=== PATIENT | male | born 1985 | race Caucasian/White ===

== ENCOUNTER 2020-01-21 00:55 | Emergency (ER) | payer OTHER ==
[~2020-01-21] VITALS: Ht 180.3 cm; Wt 89.8 kg
[2020-01-21 01:53] LABS: ABSOLUTE EOSINOPHILS 0.3 thou/uL (0.0-0.7); ABSOLUTE LYMPHOCYTES 2.2 thou/uL (0.8-5.3); ABSOLUTE MONOCYTES 0.6 thou/uL (0.0-1.2); ABSOLUTE NEUTROPHILS 6.7 thou/uL (1.6-8.1); BASOPHILS 0.3 %; HEMATOCRIT 41.4 % (42.0-52.0); LYMPHOCYTES 22.1 %; MCH 32.9 pg (26.0-34.0); MCHC 33.9 g/dL (28.0-37.0); MCV 97.1 fL (80.0-100.0); MONOCYTES 6.3 %; MPV 7.3 fl. (7.2-11.1); NUCLEATED RBCS 0 /100WBC; PLATELET COUNT* 199 thou/uL (150-400); POLYS 68.3 %; RBC 4.26 mil/uL (4.50-6.00); RDW-CV 12.9 % (10.5-14.5); WBC 9.9 thou/uL (4.0-11.0)
[2020-01-21 01:58] LABS: CALCIUM 8.5 mg/dL (8.5-10.1); POTASSIUM 4.2 mmol/L (3.5-5.1)
[2020-01-21 02:02] LABS: ALBUMIN 3.8 g/dL (3.4-5.0); TOTAL BILIRUBIN 0.2 mg/dL (<0.1-1.0); TOTAL PROTEIN 6.9 g/dL (6.4-8.2)
[2020-01-21] MEDS ORDERED: OMEPRAZOLE40 MG PO (02:25)
[2020-01-21] MEDS ORDERED: CARAFATE 1 GM TA1 GM PO (02:25)
[2020-01-21 02:53] VITALS: BP 143/89
== END 2020-01-21 02:53 | disposition home or self-care (01) ==
LOC: M.ERS 00:55
PROVIDERS: Personal Emergency Response Attendant
DX: K29.60 Other gastritis without bleeding (principal); R10.13 Epigastric pain